=== PATIENT | female | born 1970 | race Caucasian/White ===

== ENCOUNTER 2021-11-17 08:02 | Day surgery (SDC) | payer OTHER ==
--- NOTE | 2021-11-14 09:48 | RAD REPORT ---
EXAM DESCRIPTION: RAD - Chest Pa And Lat (2 Views) - 11/14/2021 9:42 am CLINICAL HISTORY: pre op pending larygoscopy Chest pain. COMPARISON: No comparisons FINDINGS: The lungs are clear. The heart is upper limit of normal in size. No displaced fractures. IMPRESSION: No acute or concerning finding suspected.
[2021-11-17] MEDS ORDERED: Ringers Lactate 1,000 ML IV ONE (08:45)
[2021-11-17] MEDS ORDERED: EPINEPHRINE/PF 1 MG/ML AMP ONE ×2 (09:36→10:49)
[2021-11-17] MEDS ORDERED: ROCURONIUM 50 MG/5 ML VIAL IV ONE (09:41)
[2021-11-17] MEDS ORDERED: LIDOCAINE 2% MPF 5 ML VIAL ONE (09:41)
[2021-11-17] MEDS ORDERED: propofoL 200 MG/20 ML VIAL IV ONE (09:41)
[2021-11-17] MEDS ORDERED: MIDAZOLAM HCL 2 MG/2 ML INJ ONE (09:41)
[2021-11-17] MEDS ORDERED: ONDANSETRON 4 MG/2 ML VIAL ONE (09:41)
[2021-11-17] MEDS ORDERED: FENTANYL CITR 100 MCG/2 ML ONE (09:41)
[2021-11-17] MEDS: LIDOCAINE 1% W/EPI 1:100,000 MDV 20 ML VIAL ONE ×2 (10:12→10:28)
[2021-11-17] MEDS ORDERED: OXYMETAZOLINE HCL 0.05% 15ML NAS ONE (10:58)
[2021-11-17] MEDS: MEPERIDINE HCL 25 MG/ML SYR ONE ×2 (11:55→12:00)
[2021-11-17] MEDS ORDERED: dexAMETHasone 10 MG/ML VIAL ONE (11:58)
[2021-11-17 13:40] VITALS: TEMP 97.9
[2021-11-17 14:20] VITALS: BP 145/68; O2SAT 98
--- NOTE | 2021-11-18 03:36 | OP ---
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 Postoperative Diagnosis: Atypical squamous cells-right false vocal cord. Procedure: Direct laryngoscopy with biopsies of the right false vocal cord, right arytenoid, and tip of epiglottis. Anesthesia: General endotracheal anesthesia was administered. We utilized Afrin and epinephrine for hemostasis during the procedure after the biopsies were taken. Specimens: Multiple specimens were removed from the right false vocal cord, right arytenoid, and tip of the epiglottis. Estimated Blood Loss: Approximately 10 to 15 mL. Findings: Friable, pink, bulky neoplasm involving the right false vocal cord and extending posteriorly to the right arytenoid. The patient also had a friable, lumpy appearance to the mucosa involving the tip of epiglottis, which was also suspicious for neoplasm. Complications: None. Disposition: Stable. The patient tolerated the procedure well. 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 I started the patient on prednisone, steroids to help reduce inflammatory component of the neoplasm and the patient was told that she needed to schedule this procedure as soon as possible. We also discussed that a possible tracheostomy may be needed to secure the airway. She understood and all questions were answered. Risks versus benefits and complications were explained in detail and a consent form was signed which placed in the chart. Description Of Procedure: The patient was transferred from the preoperative holding area to the operative suite by Department of Anesthesia, placed on the operating table supine, sedated and was intubated with a size 5.5 endotracheal tube. The patient was then rotated approximately 60 to 75 degrees and the neck was slightly extended. We placed a bite guard over the upper dentition and then I utilized a direct laryngoscope and was able to follow the endotracheal tube down to the laryngeal complex and then I suspended the scope on a Blancas stand. Photo documentation was obtained with a 0 degree telescope. The patient had a bulky, friable tumor involving the right false vocal cord anteriorly and extending posteriorly to the right arytenoid. Multiple biopsies were taken and several were sent for frozen section analysis which revealed a preliminary report of atypical squamous cells; permanent pathology results were forthcoming. Hemostasis was achieved with epinephrine 1:1000 as well as Afrin soaked pledgets. Once the laryngeal biopsies were taken, I then moved to the area of the epiglottis and the epiglottis mucosa looked very friable and had a cobblestone appearance and there were areas where I visualized possible neoplasm. Thus, I took multiple biopsies from the tip of epiglottis and submitted those as well for permanent section. I visualized all areas other areas of the hypopharynx, larynx, and oropharynx. I did not see any other abnormalities. Thus, the laryngoscope was completely removed. I then did a bimanual palpation exam and I did not palpate any areas of abnormality of the oral cavity or oropharynx. I also palpated the bilateral neck and I did not detect any areas of lymphadenopathy. The patient tolerated the procedure well and she was transferred back to Department of Anesthesia in stable condition where she was subsequently extubated and transferred to the postoperative care unit. She will be held in the recovery area for several hours and if she is able to tolerate liquids, she may be discharged home and she will follow up in my office in 24 hours. SAMUEL/KING Voice ID: [id number] Report ID: [id number] MTDD
== END 2021-11-17 14:16 | disposition home or self-care (01) ==
LOC: OR 08:02
PROVIDERS: ATTEND Otolaryngology Facial Plastic Surgery
PROC: 0CBT8ZX Excision of Right Vocal Cord, Via Natural or Artificial Opening Endoscopic, Diagnostic (ICD-10-PCS; 2021-11-17)
PROC: 0CBR8ZX Excision of Epiglottis, Via Natural or Artificial Opening Endoscopic, Diagnostic (ICD-10-PCS; principal; 2021-11-17 09:30)
DX: D02.0 Carcinoma in situ of larynx (principal); Z20.822 Contact with and (suspected) exposure to COVID-19
CPT/HCPCS: 31535; 88331; 88305 ×2; 71046; U0003; J2704; J0171 ×2; J2250; J3010; J1100; J2175; J7120; J2405

== ENCOUNTER 2022-02-09 10:15 | Emergency (ER) | payer OTHER ==
[2022-02-09] MEDS ORDERED: NA CHLORIDE 0.9% 100 ML IV ONE (10:44)
[2022-02-09] MEDS ORDERED: NA CHLORIDE 0.9% 250 ML ONE (10:44)
[2022-02-09] MEDS ORDERED: VANCOMYCIN 1 GM/VIAL ONE (10:44)
[2022-02-09] MEDS ORDERED: CEFEPIME 1 GM/VIAL ONE (10:45)
[2022-02-09 11:06] LABS: Absolute Lymphocytes (CBC) 0.4 K/uL (0.7-4.9); Hematocrit 37.1 % (36.0-45.0); Lymphocytes % 8.2 % (15.3-44.8); MPV 8.2 fL (7.6-11.3); RBC Red Blood Cell Count 4.13 M/uL (3.86-4.86)
[2022-02-09 11:09] LABS: Protime INR 1.05
[2022-02-09 11:17] LABS: C-Reactive Protein 45.7 mg/L (<3.00); Potassium 4.2 mmol/L (3.5-5.1)
--- NOTE | 2022-02-09 11:21 | RAD REPORT ---
EXAM DESCRIPTION: US - Extremity Venous Uni Ltd - 02/09/2022 11:14 am CLINICAL HISTORY: cancer, RLE swelling COMPARISON: None. TECHNIQUE: Real-time sonographic evaluation of the right lower extremity deep venous systems was per formed. FINDINGS: Normal compressibility, flow augmentation, phasic flow and spontaneous flow are identified in the right lower extremity common femoral, superficial femoral, popliteal and posterior tibial vei ns. No intraluminal filling defects seen. IMPRESSION: No DVT in the right lower extremity.
--- NOTE | 2022-02-09 11:35 | RAD REPORT ---
EXAM DESCRIPTION: US - Lower Extremity Artery Uni Ltd - 02/09/2022 11:14 am CLINICAL HISTORY: wounds, cancer patient currently undergoing chemotherapy Preliminary findings were provided to the referring physician at the time of the study. COMPARISON: No comparisons TECHNIQUE: Doppler evaluation of the right lower extremity arterial tree performed. Waveforms and ve locity values were obtained along with visual inspection. FINDINGS: Right common femoral artery is patent with a biphasic to triphasic waveform pattern. Promi nent atherosclerotic wall calcifications are present in the superficial femoral artery. No blood flow could be demonstrated within the superficial femoral artery from proximal to distal aspect.Popliteal artery is patent and may be recannulized via vessels near the adductor canal. A monophasic waveform pattern is present in the right popliteal, posterior tibial and dorsalis pedis arteries. IMPRESSION: Occlusion of the right superficial femoral artery between the common femoral and poplite al arteries. The common femoral, popliteal, dorsalis pedis and posterior tibial arteries are patent. Wall calcific ations are present but no areas of flow restricting lesion identified in these vessels.
--- NOTE | 2022-02-09 11:51 | EDPHYS ---
Physician Documentation [facility] Name: Pat Sanderson Age: 51 yrs Sex: Female : 1970 Arrival Date: 02/09/2022 Time: 10:17 Bed 5 Private MD: Thuan Carmona ED Physician Anjel Rey HPI: 02/09 10:37 This 51 yrs old Female presents to ER via Ambulatory with complaints of Wound Check - rn foot. 10:38 The patient presents with cellulitis of the right leg. Onset: The symptoms/episode rn began/occurred at an unknown time. Possible cause(s): unknown. Associated signs and symptoms: Pertinent positives: drainage, erythema, swelling, Pertinent negatives: shortness of breath, vomiting. Modifying factors: the symptoms are alleviated by nothing, the symptoms are aggravated by nothing. Severity of symptoms: At their worst the symptoms were mild, in the emergency department the symptoms are unchanged. The patient has not experienced similar symptoms in the past. The patient has been recently seen by a physician:. Pt reports sent here by her cancer doctor for foot wounds. Reports wounds/black toes, right foot, for 4 weeks atleast, with mild drainage from right great toe. Got worse this week. No fever. + redness and swelling to RLE as well. No trauma. . 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 - Family history:: not pertinent. - Social history:: Smoking status: Patient reports the use of cigarette tobacco products, smokes one-half pack cigarettes per day. - Hospitalizations: : No recent hospitalization is reported. ROS: 10:38 Constitutional: Negative for fever, chills, and weight loss, Eyes: Negative for injury, rn pain, redness, and discharge, Neck: Negative for injury, pain, and swelling, Cardiovascular: Negative for chest pain, palpitations, and edema, Respiratory: Negative for shortness of breath, cough, wheezing, and pleuritic chest pain, Abdomen/GI: Negative for abdominal pain, nausea, vomiting, diarrhea, and constipation, Back: Negative for injury and pain, MS/Extremity: Negative for injury and deformity, Skin: + redness of skin, + open wounds to right foot Neuro: Negative for headache, weakness, numbness, tingling, and seizure. Exam: 10:38 Constitutional: This is a well developed, well nourished patient who is awake, alert, rn and in no acute distress. Head/Face: Normocephalic, atraumatic. Eyes: Periorbital areas with no swelling, redness, or edema. Cardiovascular: Regular rate and rhythm. No pulse deficits. Respiratory: No increased work of breathing, no retractions or nasal flaring. Abdomen/GI: Soft, non-tender Skin: Redness of RLE with warmth, + open/gangrenous wounds of RLE including distal/lateral leg, 1st toe, 5th toe. + mild drainage and foul smell from 1st toe of right foot. MS/ Extremity: No cyanosis. Equal cap refill of 3 sec, no definite palpable pulse. Neuro: Awake and alert, GCS 15 Vital Signs: 10:27 BP 138 / 94; Pulse 70; Resp 16; Pulse Ox 99% on R/A; Weight 86.32 kg; Height 5 ft. 5 jg9 in. (165.10 cm) (R); 10:45 BP 127 / 87; Pulse 66; Resp 18 S; Pulse Ox 97% on R/A; Pain 0/10; jg9 11:49 BP 122 / 95; Pulse 65; Resp 16 S; Pulse Ox 97% on R/A; jd3 12:00 BP 103 / 73; Pulse 65; Resp 17 S; Pulse Ox 97% ; jg9 12:30 BP 117 / 77; Pulse 69; Resp 15 S; Pulse Ox 98% on R/A; jg9 13:00 BP 144 / 100; Pulse 67; Resp 22; Pulse Ox 100% on R/A; Pain 8/10; jg9 13:30 BP 148 / 99; Pulse 71; Resp 22 S; Pulse Ox 99% ; Pain 8/10; jg9 14:00 BP 117 / 89; Pulse 67; Resp 14 S; Pulse Ox 98% on R/A; jg9 14:30 BP 136 / 92; Pulse 63; Resp 17 S; Pulse Ox 95% ; jg9 15:00 BP 138 / 89; Pulse 68; Resp 17 S; Pulse Ox 93% on R/A; jg9 15:30 BP 159 / 90; Pulse 63; Resp 20 S; Pulse Ox 96% on R/A; jg9 16:00 BP 123 / 77; Pulse 68; Resp 14 S; Pulse Ox 97% ; jg9 17:00 BP 124 / 96; Pulse 69; Resp 13 S; Pulse Ox 98% on R/A; jg9 18:00 BP 131 / 93; Pulse 65; Resp 14 S; Pulse Ox 94% on R/A; Pain 8/10; jg9 10:27 Body Mass Index 31.67 (86.32 kg, 165.10 cm) j9 MDM: 10:28 Patient medically screened. rn 11:47 Differential diagnosis: cellulitis, arterial occlusion, arterial insufficiency. Data rn reviewed: vital signs, nurses notes, lab test result(s), radiologic studies, doppler, and as a result, I will admit patient. Counseling: I had a detailed discussion with the patient and/or guardian regarding: the historical points, exam findings, and any diagnostic results supporting the discharge/admit diagnosis, lab results, radiology results, the need to transfer to another facility, for higher level of care, [facility]. Response to treatment: the patient's symptoms have mildly improved after treatment, and as a result, I will admit patient. Admission orders: after a detailed discussion of the patient's condition and case, the admit orders are written by me. ED course: Pt with occlusion of right SFA, some collateral flow to popliteal and distal, no vascular here, will transfer for vascular consultation. . 12:34 ED course: Accepted for transfer at 12:32 by [facility]. . rn 16:47 ED course: Still waiting for administrative clearance from [facility], have acceptance rn but still waiting on bed. . 02/09 10:36 Order name: CBC with Diff rn 02/09 10:36 Order name: Basic Metabolic Panel; Complete Time: 11: rn 02/09 10:36 Order name: Protime (+inr); Complete Time: 11: rn 02/09 10:36 Order name: Ptt, Activated; Complete Time: 11: rn 02/09 10:36 Order name: ESR rn 02/09 10:36 Order name: CRP; Complete Time: 11: rn 02/09 10:36 Order name: Extremity Venous Uni Ltd US; Complete Time: 11:28 rn 02/09 10:36 Order name: Lower Extremity Artery Uni Ltd US; Complete Time: 12:09 rn 02/09 10:36 Order name: Blood Culture Adult (2) rn 02/09 10:36 Order name: Procalcitonin; Complete Time: 12:09 rn 02/09 10:38 Order name: Wound Culture rn 02/09 10:54 Order name: SARS-COV-2 RT PCR (Document "Date of Onset" if Symptomatic); Complete Time: iw 12:02/09 13:54 Order name: CBC Smear Scan EDMS 02/09 17:45 Order name: Ptt, Activated jg9 02/09 10:36 Order name: IV Start; Complete Time: 10:53 rn 02/09 10:36 Order name: XRAY Foot RIGHT 3 View; Complete Time: 13:14 rn Administered Medications: 10:52 Drug: vancoMYCIN 1 grams Route: IVPB; Infused Over: 2 hrs; Site: right hand; jg9 13:55 Follow up: IV Status: Completed infusion; IV Intake: 250ml jg9 10:52 Drug: Cefepime 1 grams Route: IVPB; Rate: 200 ml/hr; Infused Over: 30 mins; Site: right 9 antecubital; 11:30 Follow up: IV Status: Completed infusion; IV Intake: 100ml jg9 13:25 Drug: Zofran (Ondansetron) 4 mg Route: IVP; Site: right hand; jg9 14:11 Follow up: Response: No adverse reaction jg9 13:27 Drug: morphine 4 mg {Note: RASS-0.} Route: IVP; Site: right hand; jg9 14:11 Follow up: Response: No adverse reaction; Pain is decreased jg9 13:45 Drug: Heparin (DVT/PE Drip) 18 units/kg/hr - (HEParin 81257 units, D5W 500 ml) jg9 {Co-Signature: jjacqueline (Miguel Virk RN).} Route: IV; Rate: calculated rate; Site: right antecubital; 21:17 Follow up: IV Status: Infusion continued upon transfer as6 13:50 Drug: Ativan (LORazepam) 1 mg Route: PO; jg9 14:11 Follow up: Response: No adverse reaction; Anxiety decreased; RASS: Alert and Calm (0) g9 18:08 Drug: morphine 4 mg {Note: RASS-0.} Route: IVP; Site: right hand; jg9 18:29 Follow up: Response: No adverse reaction; Pain is decreased g9 Disposition Summary: 02/09/22 11:51 Transfer Ordered Transfer Location: [facility] rn Reason: Higher level of care rn Condition: Stable rn Problem: new rn Symptoms: are unchanged rn Accepting Physician: (02/09/22 21:17) as6 Diagnosis - Right Superficial Femoral artery occlusion rn - Cellulitis of right lower limb rn - Gangrene, not elsewhere classified rn - Osteomyelitis, unspecified rn Forms: - Medication Reconciliation Form rn - SBAR form rn Signatures: Dispatcher [employer] EDMS Anjel Rey MD MD rn Slawson, Ashby, RN RN as6 Leigh Corcoran RN RN jg9 Miguel Virk RN jd3 Corrections: (The following items were deleted from the chart) 13:14 11:51 rn rn 21:17 13:14 Dr. phelps as6
--- NOTE | 2022-02-09 11:51 | ER ---
Nurse's Notes [facility] Name: Pat Sanderson Age: 51 yrs Sex: Female : 1970 Arrival Date: 02/09/2022 Time: 10:17 Bed 5 Private MD: Thuan Carmona Diagnosis: Right Superficial Femoral artery occlusion;Cellulitis of right lower limb;Gangrene, not elsewhere classified;Osteomyelitis, unspecified Presentation: 02/09 10:27 Chief complaint: Patient states: was sent from [facility] for eval of wound on right iw great toe and right pinky toe , pt states it has been there since her cancer treatment started 4 weeks ago, has hx of laryngeal cancer. Coronavirus screen: At this time, the client does not indicate any symptoms associated with coronavirus-19. Ebola Screen: Patient negative for fever greater than or equal to 101.5 degrees Fahrenheit, and additional compatible Ebola Virus Disease symptoms Patient denies exposure to infectious person. Patient denies travel to an Ebola-affected area in the 21 days before illness onset. No symptoms or risks identified at this time. Initial Sepsis Screen: Does the patient meet any 2 criteria? No. Patient's initial sepsis screen is negative. Does the patient have a suspected source of infection? No. Patient's initial sepsis screen is negative. Risk Assessment: Do you want to hurt yourself or someone else? Patient reports no desire to harm self or others. Onset of symptoms was December 2021. 10:27 Method Of Arrival: Ambulatory iw 10:27 Acuity: NURIA 3 iw Triage Assessment: 10:40 General: Appears uncomfortable, Behavior is anxious. 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 - Family history:: not pertinent. - Social history:: Smoking status: Patient reports the use of cigarette tobacco products, smokes one-half pack cigarettes per day. - Hospitalizations: : No recent hospitalization is reported. Screenin:54 Abuse screen: Denies threats or abuse. Denies injuries from another. Nutritional jg9 screening: No deficits noted. Tuberculosis screening: No symptoms or risk factors identified. Fall Risk None identified. Assessment: 10:54 Pain: Complains of pain in right foot and right leg-lower leg. Derm: Skin Wound noted jg9 right foot-r great toe, r pinky toe, r area on bottom of foot near pinky, r mid crockett area on lateral aspect. Derm: Skin Skin is red, Skin temperature is warm Wound noted. 11:49 Reassessment: No changes from previously documented assessment. Patient and/or family jd3 updated on plan of care and expected duration. Pain level reassessed. Patient is alert, oriented x 3, equal unlabored respirations, skin warm/dry/pink. 12:36 Reassessment: Patient appears in no apparent distress at this time. Patient and/or jg9 family updated on plan of care and expected duration. Pain level reassessed. Patient is alert, oriented x 3, equal unlabored respirations, skin warm/dry/pink. 18:39 Reassessment: report called to SARAH Alvarenga at [facility]. jg9 Vital Signs: 10:27 BP 138 / 94; Pulse 70; Resp 16; Pulse Ox 99% on R/A; Weight 86.32 kg; Height 5 ft. 5 jg9 in. (165.10 cm) (R); 10:45 BP 127 / 87; Pulse 66; Resp 18 S; Pulse Ox 97% on R/A; Pain 0/10; jg9 11:49 BP 122 / 95; Pulse 65; Resp 16 S; Pulse Ox 97% on R/A; jd3 12:00 BP 103 / 73; Pulse 65; Resp 17 S; Pulse Ox 97% ; jg9 12:30 BP 117 / 77; Pulse 69; Resp 15 S; Pulse Ox 98% on R/A; jg9 13:00 BP 144 / 100; Pulse 67; Resp 22; Pulse Ox 100% on R/A; Pain 8/10; jg9 13:30 BP 148 / 99; Pulse 71; Resp 22 S; Pulse Ox 99% ; Pain 8/10; jg9 14:00 BP 117 / 89; Pulse 67; Resp 14 S; Pulse Ox 98% on R/A; jg9 14:30 BP 136 / 92; Pulse 63; Resp 17 S; Pulse Ox 95% ; jg9 15:00 BP 138 / 89; Pulse 68; Resp 17 S; Pulse Ox 93% on R/A; jg9 15:30 BP 159 / 90; Pulse 63; Resp 20 S; Pulse Ox 96% on R/A; jg9 16:00 BP 123 / 77; Pulse 68; Resp 14 S; Pulse Ox 97% ; jg9 17:00 BP 124 / 96; Pulse 69; Resp 13 S; Pulse Ox 98% on R/A; jg9 18:00 BP 131 / 93; Pulse 65; Resp 14 S; Pulse Ox 94% on R/A; Pain 8/10; jg9 10:27 Body Mass Index 31.67 (86.32 kg, 165.10 cm) jg9 ED Course: 10:17 Patient arrived in ED. am2 10:18 Thuan Carmona MD is Private Physician. am2 10:25 Leigh Corcoran, RN is Primary Nurse. jg9 10:28 Anjel Rey MD is Attending Physician. rn 10:29 Triage completed. iw 10:30 Arm band placed on. iw 10:30 Inserted saline lock: 22 gauge in right antecubital area, using aseptic technique. jg9 Blood collected. 10:40 Inserted saline lock: 20 gauge in right hand, using aseptic technique. jg9 11:12 Patient has correct armband on for positive identification. Bed in low position. Call jg9 light in reach. Side rails up X 1. 11:16 Extremity Venous Uni Ltd US In Process Unspecified. EDMS 11:16 Lower Extremity Artery Uni Ltd US In Process Unspecified. EDMS 11:58 initiated transfer to [facility]. bd 12:08 XRAY Foot RIGHT 3 View In Process Unspecified. EDMS 12:36 Appears to be sleeping. jg9 16:58 spoke to Alfred at [facility], pt is being accepted in transfer but bd "beds are tight" Alfred will contact household coordinator and call me back. 17:30 pt accepted in transfer to [facility] by dr Medardo Madrigal admin approval given by ayo Mcconnell. pt going to room 911. 19:13 Primary Nurse role handed off by Leigh Corcoran, RN mw2 21:08 Maria Luz Moreira, RN is Primary Nurse. kd3 21:16 No provider procedures requiring assistance completed. Patient transferred, IV remains as6 in place. Administered Medications: 10:52 Drug: vancoMYCIN 1 grams Route: IVPB; Infused Over: 2 hrs; Site: right hand; jg9 13:55 Follow up: IV Status: Completed infusion; IV Intake: 250ml jg9 10:52 Drug: Cefepime 1 grams Route: IVPB; Rate: 200 ml/hr; Infused Over: 30 mins; Site: right j9 antecubital; 11:30 Follow up: IV Status: Completed infusion; IV Intake: 100ml jg9 13:25 Drug: Zofran (Ondansetron) 4 mg Route: IVP; Site: right hand; jg9 14:11 Follow up: Response: No adverse reaction jg9 13:27 Drug: morphine 4 mg {Note: RASS-0.} Route: IVP; Site: right hand; jg9 14:11 Follow up: Response: No adverse reaction; Pain is decreased jg9 13:45 Drug: Heparin (DVT/PE Drip) 18 units/kg/hr - (HEParin 19041 units, D5W 500 ml) jg9 {Co-Signature: jd3 (Miguel Virk RN).} Route: IV; Rate: calculated rate; Site: right antecubital; 21:17 Follow up: IV Status: Infusion continued upon transfer as6 13:50 Drug: Ativan (LORazepam) 1 mg Route: PO; jg9 14:11 Follow up: Response: No adverse reaction; Anxiety decreased; RASS: Alert and Calm (0) jg9 18:08 Drug: morphine 4 mg {Note: RASS-0.} Route: IVP; Site: right hand; jg9 18:29 Follow up: Response: No adverse reaction; Pain is decreased jg9 Intake: 11:30 IV: 100ml; Total: 100ml. jg9 13:55 IV: 250ml; Total: 350ml. jg9 Outcome: 11:51 ER care complete, transfer ordered by . rn 21:17 Transferred by ground EMS Transfer form completed. as6 21:17 Condition: stable 21:17 Instructed on the need for transfer. 21:17 Patient left the ED. as6 Signatures: Dispatcher [employer] EDLatia Tomlin Irene, RN RN iw Nieto, Roman, MD MD rn Moreno, Amanda am2 Miguel Virk RN RN jd3 ModocFranci coates mw2 Mk Newell RN RN as6 Maria Luz Moreira, RN RN kd3 Leigh Corcoran RN RN jg9 Miguel Virk RN jd3 Corrections: (The following items were deleted from the chart) 10:54 10:30 Inserted saline lock: 22 gauge in right antecubital area, using aseptic jg9 technique. hand, using aseptic technique. Blood collected. jg9 13:28 10:27 BP 138 / 94; Pulse 70bpm; Resp 16bpm; Pulse Ox 99% RA; iw jg9 13:36 10:27 BP 138 / 94; Pulse 70bpm; Resp 16bpm; Pulse Ox 99% RA; 79.38 kg; Height 5 ft. 6 jg9 in. Reported; BMI: 28.2; jg9 18:18 18:00 BP 131 / 93; Pulse 65bpm; Pulse Ox 94% RA; Pain 8/10; jg9 jg9
--- NOTE | 2022-02-09 13:03 | RAD REPORT ---
EXAM DESCRIPTION: RAD - Foot Right 3 View - 02/09/2022 12:06 pm CLINICAL HISTORY: wounds 1st/5th toe, possible osteo COMPARISON: Lower Extremity Artery Uni Ltd dated 02/09/2022 FINDINGS: Wound along the lateral aspect of the foot at the level of the fifth MTP joint. There is a lso a wound at the tip of the first toe. The first distal phalangeal tuft is partially obscured and m ay be eroded. This could be secondary to osteomyelitis. At the fifth MTP joint, no definite evidence of osteomyelitis is identified. No acute fractures identified. Calcaneal spur. IMPRESSION: 1. Findings are suspicious for osteomyelitis at the great toe distal phalangeal tuft. 2. No conclusive radiographic findings to suggest osteomyelitis at the fifth MTP joint. MRI is more s ensitive in the acute phase.
[2022-02-09] MEDS ORDERED: ONDANSETRON 4 MG/2 ML VIAL ONE (13:26)
[2022-02-09] MEDS ORDERED: MORPHINE 4 MG/ML SYR ONE ×2 (13:26→18:08)
[2022-02-09] MEDS ORDERED: HEPARIN/D5W 25,000 UNIT/500 ML BAG IV ONE (13:34)
[2022-02-09] MEDS ORDERED: LORAZEPAM 1 MG TABLET ONE (13:50)
[2022-02-09 13:54] LABS: Blood Morphology Comment NOTED (NOT SEEN); Platelet Estimate ADEQ; White Blood Cell Scan OK (OK)
[2022-02-09] MEDS ORDERED: HEPARIN/D5W 25,000 UNIT/500 ML BAG IV SCH (14:00)
[2022-02-09 23:39] VITALS: BP 131/93; O2SAT 94
== END 2022-02-09 21:17 | disposition short-term general hospital (02) ==
LOC: ER 10:15
DX: L03.115 Cellulitis of right lower limb (principal); I96 Gangrene, not elsewhere classified; M86.9 Osteomyelitis, unspecified; I70.201 Unspecified atherosclerosis of native arteries of extremities, right leg; I10 Essential (primary) hypertension; F17.210 Nicotine dependence, cigarettes, uncomplicated; Z20.822 Contact with and (suspected) exposure to COVID-19
CPT/HCPCS: 87040 ×2; 87070; 85025; 80048; 36415; 87205; 85610; 85730 ×2; 85652; 84145; 86140; 73630; 93926; 93971; 99285; U0003; J3370; J7050; J1644; J2405; J0692; 87077; 87186